=== PATIENT | female | born 1930 | race Caucasian/White ===

== ENCOUNTER 2017-01-01 09:28 | Day surgery (SDC) | payer OTHER, BC ==
[2016-12-31 14:11] VITALS: BMI 24.6
[2017-01-01 10:02] LABS: MCH 30.4 pg (25.7-33.7); MCHC 33.6 g/dl (32.0-36.0); MEAN CELL VOLUME 90.3 fl (80-96); MEAN PLT VOLUME 7.1 fl (7.5-11.1); PLATELET COUNT 232 K/MM3 (134-434); RDW 13.9 % (11.6-15.6); WHITE BLOOD COUNT 4.7 K/mm3 (4.0-10.0)
[2017-01-01 10:18] LABS: ALBUMIN 3.9 g/dl (3.4-5.0); ALK PHOS 67 U/L (45-117); ANION GAP 8 (8-16); BILIRUBIN,TOTAL 0.9 mg/dL (0.2-1.0); CALCIUM 9.5 mg/dL (8.5-10.1); CO2 28 mmol/L (21-32); CREATININE 0.7 mg/dL (0.55-1.02); GLUCOSE,RANDOM 99 mg/dL (74-106); SGOT/AST 13 U/L (15-37); SGPT/ALT 17 U/L (12-78); TOT PROT 7.7 g/dl (6.4-8.2)
[2017-01-01 12:18] VITALS: TEMP 97.5
[2017-01-01 12:30] VITALS: PULSE 52
[2017-01-01 13:17] VITALS: BP 132/63
--- NOTE | 2017-01-01 15:18 | EKG ---
Test Reason : Blood Pressure : / mmHG Vent. Rate : 053 BPM Atrial Rate : 053 BPM P-R Int : 164 ms QRS Dur : 072 ms QT Int : 518 ms P-R-T Axes : 058 019 052 degrees QTc Int : 486 ms SINUS BRADYCARDIA WITH PREMATURE ATRIAL COMPLEXES NONSPECIFIC ST ABNORMALITY ABNORMAL ECG WHEN COMPARED WITH ECG OF 02-APR-2016 14:22, PREMATURE ATRIAL COMPLEXES ARE NOW PRESENT Confirmed by ARNULFO MALONE, PATEL ([id number]) on 01/01/2017 3:18:49 PM Referred By: Gatito COPELAND Confirmed By:PATEL ARREDONDO MD
== END 2017-01-01 13:18 | disposition home or self-care (01) ==
LOC: JOR 09:28 → JASU-ENDO 09:28
PROVIDERS: ATTEND Internal Medicine Cardiovascular Disease
PROC: B24BZZ4 Ultrasonography of Heart with Aorta, Transesophageal (ICD-10-PCS; 2017-01-01)
PROC: 5A2204Z Restoration of Cardiac Rhythm, Single (ICD-10-PCS; principal; 2017-01-01 11:00)
DX: I48.91 Unspecified atrial fibrillation (principal)
CPT/HCPCS: 92960; 93325; C8925; 36415; 80053; 85027; 93005; 93010